=== PATIENT | female | born 1990 | race Caucasian/White ===

== ENCOUNTER 2016-03-17 17:10 | Emergency (ER) | payer SELFPAY ==
[2016-03-17 17:11] VITALS: BMI 18.7
[2016-03-17 17:13] VITALS: TEMP 98.3
[2016-03-17 17:27] VITALS: BP 128/78; PULSE 96
--- NOTE | 2016-03-17 18:18 | EDPRACDOC ---
- General Information Chief Complaint: Skin Rash (not drug induced) Stated Complaint: RASH, STD CHECK Time Seen by Provider: 03/17/16 17:25 Information Source: Patient Mode Of Arrival: Car Home Medications: Home Medications Permethrin 60 gm TP DAILY #1 tube 03/17/16 Allergies/Adverse Reactions: Allergies Allergy/AdvReac Type Severity Reaction Status Date / Time No Known Allergies Allergy Verified 03/17/16 17:24 - History of Present Illness Onset: 3 days HPI: PT PRESENTS TODAY WITH ITCHY RASH TO HANDS X 3 DAYS. NO FEVER. WORSE AT NIGHT. UNKNOWN EXPOSURE. Rash Location: Reports: Hands Quality: Reports: Pruritic, Red Relevant History of: Reports: None Irritability: Mild Pain Severity: None Associated Signs and Symptoms: Reports: None ED Past Medical History - History Reviewed Yes Nurses notes reviewed and agree except as marked - Patient Medical History Psychological History: Denies: Depression Surgical History: Denies: Hysterectomy - Social Medical History Smoking Status: Heavy tobacco smoker (5 or more cigarettes/day or daily pipe/ cigar) EDM Review of Systems - Review of Systems ROS Negative Except as Marked: Yes All systems reviewed and were negative except as marked Constitutional: No Symptoms Reported Musculoskeletal: Hand Integumentary: Itching - Physical Exam Constitutional: Alert (Awake), No apparent distress Oriented to: Time, Person, Place Last recorded Vital Signs: Last Vital Signs Temp 98.3 F 03/17/16 17:12 Pulse 96 03/17/16 17:25 Resp 20 03/17/16 17:25 BP 128/78 03/17/16 17:25 Pulse Ox 99 03/17/16 17:25 Oxygen Pulse Oxygen Saturation 99 O2 Device Room Air Oxygen Flow Rate Fraction of Inspired Oxygen ( FIO2) - HEENT Head: Normal Eye Exam: Normal Neck: Normal, Denies Pain, Midline - Respiratory/Cardiovascular Respiratory: Normal - CTA Cardiovascular: Normal - GI Palpation: Normal Tenderness: Non tender - Musculoskeletal Back: Normal Extremities: Other (SMALL, RED, DOTS TO DORSAL FINGERS, CONSISTENT WITH SCABIES ; NO SECONDARY INFECTION) - Integumentary Skin: Normal Lymphatics: Normal - Neurologic Mood Description: Normal Thought: Coherent Perception: Normal Decision Time to Discharge: 18:16 - Departure Disposition: Home Condition: Good Final Diagnosis: Scabies Instructions: Acute Rash (ED) Education/Counseling Given To: Patient Education/Counseling Given Regarding: Diagnosis, Treatment, Follow Up Referrals: Nancy West, [facility] [Primary Care Provider] - One Week Prescriptions: New Permethrin 60 gm TP DAILY #1 tube Additional Instructions: WASH ALL CLOTHING AND BEDDING.
== END 2016-03-17 18:24 | disposition home or self-care (01) ==
LOC: EDMC 17:10
DX: B86 Scabies (principal)
CPT/HCPCS: 99282